=== PATIENT | female | born 1965 | race Caucasian/White ===

== ENCOUNTER 2022-09-28 18:10 | Inpatient (IN) | payer OTHER ==
[2022-09-28 19:29] VITALS: BMI 24.7
[2022-09-28] MEDS ORDERED: DICYCLOMINE HCL 10 MG CAPSULE PO PRN (20:47)
[2022-09-28] MEDS ORDERED: BISMUTH SUBSALICYLATE 524 MG/30 ML PO PRN (20:47)
[2022-09-28] MEDS ORDERED: MAGNESIUM HYDROX 2400MG/30ML ORAL SUSPENSION 30 ML CUP PO PRN (20:47)
[2022-09-28] MEDS ORDERED: ACETAMINOPHEN 325 MG TABLET (FP) PO PRN (20:47)
[2022-09-28] MEDS ORDERED: guaiFENesin 600 MG TABLET.ER (FP) PO PRN (20:47)
[2022-09-28] MEDS ORDERED: NALOXONE HCL (KLOXXADO) 8 MG SPRAY NS PRN (20:47)
[2022-09-28] MEDS ORDERED: POLYETHYLENE GLYCOL (HEALTHYLAX) 3350 17 GM PACKET PO PRN (20:47)
[2022-09-28] MEDS ORDERED: BENZONATATE 200 MG CAPSULE PO PRN (20:47)
[2022-09-28] MEDS ORDERED: IBUPROFEN 600 MG TABLET (FP) PO PRN (20:47)
[2022-09-28] MEDS ORDERED: IBUPROFEN 400 MG TABLET (FP) PO PRN (20:47)
[2022-09-28] MEDS ORDERED: ONDANSETRON *ODT* 4 MG TABLET SL PRN (20:47)
[2022-09-28] MEDS ORDERED: LOPERAMIDE HCL 2 MG CAPSULE PO PRN (20:47)
[2022-09-28] MEDS ORDERED: BENZOCAINE/MENTHOL (CHLORASEPTIC ) LOZENGE MM PRN (20:47)
[2022-09-28] MEDS ORDERED: MAG HYDROX/AL HYDROX/SIMETH 30 ML UNIT-DOSE CUP PO PRN (20:47)
[2022-09-28] MEDS ORDERED: NALOXONE HCL 0.4 MG/ML VIAL IM PRN (20:47)
[2022-09-28] MEDS ORDERED: NICOTINE POLACRILEX 2 MG GUM BUC PRN (20:47)
[2022-09-28] MEDS ORDERED: MELATONIN 5 MG TABLETS ONE (21:08)
[2022-09-28] MEDS: MELATONIN 5 MG TABLETS PO SCH (21:13)
[2022-09-28] MEDS: ATENOLOL 25 MG TABLET (FP) PO SCH (22:43)
[2022-09-28] MEDS: BACITRACIN 0.9 GM PACKET TP SCH (22:43)
[2022-09-28] MEDS: LIDOCAINE PATCH REMOVAL MC SCH (22:43)
[2022-09-28] MEDS: THIAMINE HCL 100 MG TABLET (FP) PO SCH (22:44)
[2022-09-28] MEDS: chlordiazePOXIDE HCL 25 MG CAPSULE PO SCH (22:46)
[2022-09-29] MEDS: chlordiazePOXIDE HCL 25 MG CAPSULE PO SCH ×4 (05:24→22:22)
[2022-09-29] MEDS: LIDOCAINE 5% TOPICAL PATCH TP SCH (10:26)
[2022-09-29] MEDS: NICOTINE 14 MG/24 HOURS TOPICAL PATCH TD SCH (10:27)
[2022-09-29] MEDS: HYDROCHLOROTHIAZIDE 12.5 MG CAPSULE (FP) PO SCH (10:28)
[2022-09-29] MEDS: BACITRACIN 0.9 GM PACKET TP SCH (10:28)
[2022-09-29] MEDS: PRENATAL VITAMINS W/ FOLIC ACID TABLET (FP) PO SCH (10:28)
[2022-09-29 11:43] LABS: HEMATOCRIT 35.9 % (32.4-45.2); HEMOGLOBIN 12.3 GM/dL (10.7-15.3); MCH 33.1 pg (25.7-33.7); MCHC 34.3 g/dl (32.0-36.0); MEAN CELL VOLUME 96.5 fl (80-96); MEAN PLT VOLUME 9.1 fl (7.5-11.1); PLATELET COUNT 44 10^3/uL (134-434); RBC 3.72 M/mm3 (3.60-5.2); RDW 15.4 % (11.6-15.6); WHITE BLOOD COUNT 2.7 K/mm3 (4.0-10.0)
[2022-09-29 12:00] LABS: BILIRUBIN,TOTAL 1.6 mg/dL (0.2-1); CALCIUM 8.8 mg/dL (8.5-10.1)
[2022-09-29 12:01] LABS: ALBUMIN 3.3 g/dl (3.4-5.0); BLOOD UREA NITROGEN 13.9 mg/dL (7-18); CREATININE 0.6 mg/dL (0.55-1.3); TOT PROT 6.8 g/dl (6.4-8.2)
[2022-09-29] MEDS: chlordiazePOXIDE HCL 25 MG CAPSULE PO PRN (13:58)
[2022-09-29] MEDS: NICOTINE 10 MG CARTRIDGE (INHALER) IH SCH (16:01)
[2022-09-29] MEDS: LIDOCAINE PATCH REMOVAL MC SCH (22:18)
[2022-09-29] MEDS: ATENOLOL 25 MG TABLET (FP) PO SCH (22:19)
[2022-09-29] MEDS: POTASSIUM CHLORIDE ORAL LIQUID 20 MEQ/15 ML PO SCH (22:20)
[2022-09-29] MEDS: MELATONIN 5 MG TABLETS PO SCH (22:21)
[2022-09-29] MEDS: THIAMINE HCL 100 MG TABLET (FP) PO SCH (22:21)
[2022-09-29] MEDS: QUEtiapine FUMARATE 50 MG TABLET PO SCH (22:21)
[2022-09-30] MEDS: chlordiazePOXIDE HCL 25 MG CAPSULE PO SCH ×4 (05:46→22:05)
[2022-09-30] MEDS: PRENATAL VITAMINS W/ FOLIC ACID TABLET (FP) PO SCH (10:18)
[2022-09-30] MEDS: NICOTINE 10 MG CARTRIDGE (INHALER) IH SCH (10:19)
[2022-09-30] MEDS: LIDOCAINE 5% TOPICAL PATCH TP SCH (10:21)
[2022-09-30] MEDS: NICOTINE 14 MG/24 HOURS TOPICAL PATCH TD SCH (10:21)
[2022-09-30] MEDS: BACITRACIN 0.9 GM PACKET TP SCH (10:25)
[2022-09-30] MEDS: HYDROCHLOROTHIAZIDE 12.5 MG CAPSULE (FP) PO SCH (10:28)
[2022-09-30] MEDS: buPROPion HCL 75 MG TABLET PO SCH (10:31)
[2022-09-30] MEDS: POTASSIUM CHLORIDE ORAL LIQUID 20 MEQ/15 ML PO SCH (11:00)
[2022-09-30] MEDS: QUEtiapine FUMARATE 50 MG TABLET PO SCH ×2 (11:00→22:05)
[2022-09-30] MEDS: CARBAMIDE PEROXIDE 6.5% OTIC 15 ML BOTTLE AS SCH ×2 (13:29→23:15)
[2022-09-30] MEDS: chlordiazePOXIDE HCL 25 MG CAPSULE PO PRN (14:00)
[2022-09-30] MEDS: MELATONIN 5 MG TABLETS PO SCH (22:04)
[2022-09-30] MEDS: ATENOLOL 25 MG TABLET (FP) PO SCH (22:04)
[2022-09-30] MEDS: THIAMINE HCL 100 MG TABLET (FP) PO SCH (22:05)
[2022-09-30] MEDS: LIDOCAINE PATCH REMOVAL MC SCH (22:06)
[2022-10-01] MEDS ORDERED: chlordiazePOXIDE HCL 10 MG CAPSULE PO PRN
[2022-10-01] MEDS: chlordiazePOXIDE HCL 10 MG CAPSULE PO SCH ×4 (05:45→22:15)
[2022-10-01] MEDS: NICOTINE 14 MG/24 HOURS TOPICAL PATCH TD SCH (10:28)
[2022-10-01] MEDS: BACITRACIN 0.9 GM PACKET TP SCH (10:28)
[2022-10-01] MEDS: QUEtiapine FUMARATE 50 MG TABLET PO SCH ×2 (10:28→22:15)
[2022-10-01] MEDS: HYDROCHLOROTHIAZIDE 12.5 MG CAPSULE (FP) PO SCH (10:28)
[2022-10-01] MEDS: NICOTINE 10 MG CARTRIDGE (INHALER) IH SCH (10:29)
[2022-10-01] MEDS: LIDOCAINE 5% TOPICAL PATCH TP SCH (10:29)
[2022-10-01] MEDS: CARBAMIDE PEROXIDE 6.5% OTIC 15 ML BOTTLE AS SCH ×2 (10:29→23:06)
[2022-10-01] MEDS: PRENATAL VITAMINS W/ FOLIC ACID TABLET (FP) PO SCH (10:29)
[2022-10-01] MEDS: buPROPion HCL 75 MG TABLET PO SCH (10:30)
[2022-10-01] MEDS: THIAMINE HCL 100 MG TABLET (FP) PO SCH (22:15)
[2022-10-01] MEDS: ATENOLOL 25 MG TABLET (FP) PO SCH (22:15)
[2022-10-01] MEDS: LIDOCAINE PATCH REMOVAL MC SCH (22:15)
[2022-10-01] MEDS: MELATONIN 5 MG TABLETS PO SCH (22:15)
[2022-10-02] MEDS: chlordiazePOXIDE HCL 10 MG CAPSULE PO SCH ×2 (05:33→17:03)
[2022-10-02] MEDS: NICOTINE 14 MG/24 HOURS TOPICAL PATCH TD SCH (10:15)
[2022-10-02] MEDS: CARBAMIDE PEROXIDE 6.5% OTIC 15 ML BOTTLE AS SCH ×2 (10:16→22:16)
[2022-10-02] MEDS: LIDOCAINE 5% TOPICAL PATCH TP SCH (10:17)
[2022-10-02] MEDS: NICOTINE 10 MG CARTRIDGE (INHALER) IH SCH (10:17)
[2022-10-02] MEDS: buPROPion HCL 75 MG TABLET PO SCH (10:17)
[2022-10-02] MEDS: PRENATAL VITAMINS W/ FOLIC ACID TABLET (FP) PO SCH (10:17)
[2022-10-02] MEDS: HYDROCHLOROTHIAZIDE 12.5 MG CAPSULE (FP) PO SCH (10:17)
[2022-10-02] MEDS: BACITRACIN 0.9 GM PACKET TP SCH (10:17)
[2022-10-02] MEDS: QUEtiapine FUMARATE 50 MG TABLET PO SCH ×2 (10:17→22:15)
[2022-10-02 11:30] LABS: ALBUMIN 3.2 g/dl (3.4-5.0); BLOOD UREA NITROGEN 15.3 mg/dL (7-18); CALCIUM 8.8 mg/dL (8.5-10.1)
[2022-10-02 11:33] LABS: CREATININE 0.6 mg/dL (0.55-1.3)
[2022-10-02 11:34] LABS: TOT PROT 6.5 g/dl (6.4-8.2)
[2022-10-02] MEDS: MELATONIN 5 MG TABLETS PO SCH (22:15)
[2022-10-02] MEDS: THIAMINE HCL 100 MG TABLET (FP) PO SCH (22:15)
[2022-10-02] MEDS: LIDOCAINE PATCH REMOVAL MC SCH (22:15)
[2022-10-02] MEDS: ATENOLOL 25 MG TABLET (FP) PO SCH (22:15)
[2022-10-03] MEDS ORDERED: chlordiazePOXIDE HCL 10 MG CAPSULE PO ONE (05:00)
[2022-10-03 08:41] VITALS: BP 140/90; PULSE 73; RESP 18; TEMP 98.1
[2022-10-03] MEDS: NICOTINE 10 MG CARTRIDGE (INHALER) IH SCH (09:31)
== END 2022-10-03 09:57 | disposition home or self-care (01) | DRG 775 ==
LOC: YASAS 18:10 → Y3N 21:09
PROVIDERS: ADMIT Allergy & Immunology; ATTEND Surgery
PROC: HZ2ZZZZ Detoxification Services for Substance Abuse Treatment (ICD-10-PCS; principal; 2022-09-28)
DX: F10.230 Alcohol dependence with withdrawal, uncomplicated (principal); F17.210 Nicotine dependence, cigarettes, uncomplicated; F19.24 Other psychoactive substance dependence with psychoactive substance-induced mood disorder; F43.10 Post-traumatic stress disorder, unspecified; E87.6 Hypokalemia; G47.00 Insomnia, unspecified; I10 Essential (primary) hypertension; R94.5 Abnormal results of liver function studies; R73.9 Hyperglycemia, unspecified; Z86.19 Personal history of other infectious and parasitic diseases
CPT/HCPCS: 36415; 80053; 83036; 85027; 86780; 93005; 93010; C9803-CS; U0003; U0005